=== PATIENT | male | born 1975 | race African-American/Black ===

== ENCOUNTER 2015-12-13 20:42 | Outpatient (RCR) | payer OTHER ==
[~2015-12-13] VITALS: Ht 185.4 cm; Wt 147.4 kg
[2015-12-13] MEDS ORDERED: ENOXAPARIN 100 MG/1 ML (LOVENOX) SYR SC ONE (20:52)
[2015-12-13] MEDS ORDERED: ENOXAPARIN 60 MG/0.6 ML (LOVENOX) SYR SC ONE (20:52)
[2015-12-13] MEDS: ENOXAPARIN 60 MG/0.6 ML (LOVENOX) SYR SC SCH ×2 (20:55→21:55)
--- NOTE | 2015-12-13 20:55 | NUR ---
Patient given Lovenox Inj. per order. 100mg. SQ given to RLQ of abdomen. 60mg SQ given to RUQ of abdomen. Patient asked, "Should I be staying off my leg or is it okay for me to go to work, when I was seen over the weekend the ER advised I stay off it as much as possible until I seen Dr. Zavaleta. Today when I seen Dr. Zavaleta he did not say anything and I forgot to ask him." I asked Dr. Valerio who is ER Dr. cat what he advised and he said, "I would advise staying off it for 48 hours and following up with Dr. Zavaleta in the AM to see if he agrees." I passed on this information to patient. No futher questions and verbalized understanding.
[2015-12-14] MEDS: ENOXAPARIN 80 MG/0.8 ML (LOVENOX) SYR SC SCH ×2 (08:47→20:55)
[2015-12-14] MEDS ORDERED: ENOXAPARIN 100 MG/1 ML (LOVENOX) SYR SC SCH (09:00)
[2015-12-14] MEDS ORDERED: ENOXAPARIN 100 MG/1 ML (LOVENOX) SYR SC ONE (20:54)
[2015-12-14] MEDS ORDERED: ENOXAPARIN 60 MG/0.6 ML (LOVENOX) SYR SC ONE (20:54)
[2015-12-15] MEDS: ENOXAPARIN 80 MG/0.8 ML (LOVENOX) SYR SC SCH ×2 (09:20→20:41)
[2015-12-16] MEDS: ENOXAPARIN 80 MG/0.8 ML (LOVENOX) SYR SC SCH ×2 (08:31→20:42)
[2015-12-16] MEDS ORDERED: ENOXAPARIN 80 MG/0.8 ML (LOVENOX) SYR SC ONE (20:40)
[2015-12-17 10:21] VITALS: BP 130/93
[2015-12-17] MEDS: ENOXAPARIN 80 MG/0.8 ML (LOVENOX) SYR SC SCH (10:21)
--- NOTE | 2015-12-17 10:22 | NUR ---
Patient reports he saw PCP just before coming to ED and that this dose is to be his last dose.
[2016-01-05] MEDS ORDERED: HEPARIN 1000 UNIT/ML 2 ML VIAL IV ONE (09:20)
== END 2016-03-14 | disposition home or self-care (01) ==
LOC: EUOP 20:42 → EDSTATUS 12-14 20:41 → EUOP 12-14 20:42
PROVIDERS: ATTEND Internal Medicine
DX: I82.401 Acute embolism and thrombosis of unspecified deep veins of right lower extremity (principal)
CPT/HCPCS: 96372; J1650

== ENCOUNTER 2016-04-30 02:52 | Emergency (ER) | payer OTHER ==
[~2016-04-30] VITALS: Ht 185.4 cm; Wt 183.1 kg
[2016-04-30] MEDS ORDERED: ADENOSINE 6 MG/2 ML (ADENOCARD) VIAL IV ONE ×2 (03:03→03:15)
--- NOTE | 2016-04-30 03:10 | NUR ---
CHEST PRESSURE RESOLVED AFTER HEART RATE DOWN POST ADENOSINE
[2016-04-30] MEDS ORDERED: SODIUM CHLORIDE FLUSH 3 ML SYR IV PRN (03:15)
[2016-04-30] MEDS ORDERED: meTOprolol 5 MG/5 ML (LOPRESSOR) VIAL IV ONE (03:15)
[2016-04-30] MEDS ORDERED: SODIUM CHLORIDE FLUSH 10 ML SYR IV PRN (03:15)
[2016-04-30] MEDS ORDERED: SODIUM CHLORIDE 250 ML IV PRN (03:15)
[2016-04-30 03:24] LABS: BASOPHILS % (AUTO) 0 % (0-2); EOSINOPHILS # (AUTO) 0.3 10^3uL; EOSINOPHILS % (AUTO) 4 % (0-4); LYMPHOCYTES # (AUTO) 2.7 X10^3; MEAN CORPUSCULAR HGB CONC 33.3 g/dL (31.0-37.0); MEAN CORPUSCULAR VOLUME 81 FL (80-100); MEAN PLATELET VOLUME 10.9 FL (6.0-9.5); MONOCYTES # (AUTO) 0.5 X10^3; MONOCYTES % (AUTO) 9 % (3-11); NEUTROPHILS # (AUTO) 2.8 X10^3; NEUTROPHILS % (AUTO) 44 % (51-67); PLATELET COUNT 278 10^3uL (150-450); WHITE BLOOD COUNT 6.36 10^3uL (4.0-11.0)
[2016-04-30 03:26] LABS: MEAN CORPUSCULAR HEMOGLOBIN 26.9 PG (26.0-34.0)
[2016-04-30 03:31] LABS: ALBUMIN 4.3 g/dL (3.4-5.0); ANION GAP 16.1 MEQ/L (3-15); CALCULATED IONIZED CALCIUM 3.8 mg/dL (3.8-4.6); TOTAL PROTEIN 8.3 g/dL (6.4-8.5)
--- NOTE | 2016-04-30 04:01 | NUR ---
PT SLEEPING AT THIS TIME
--- NOTE | 2016-04-30 04:33 | NUR ---
PT CONTINUES TO SLEEP
--- NOTE | 2016-04-30 05:38 | NUR ---
AWAKE RESTING IN BED DENIES PAIN OR DISCOMFORT AT THIS TIME
--- NOTE | 2016-04-30 05:50 | NUR ---
DR WHELAN CALLED DR RICKS [employer] IN [facility].
[2016-04-30 06:05] VITALS: BP 124/80
== END 2016-04-30 06:08 | disposition home or self-care (01) ==
LOC: ED 02:54
DX: I47.1 Supraventricular tachycardia (principal)
CPT/HCPCS: 36415; 71010; 80053; 82550; 82553; 84484; 85025; 85610; 85730; 93005; 96361; 96374; 96375; 99285; J0153; J7030; J7050; 93010